=== PATIENT | female | born 1975 | race African-American/Black ===

== ENCOUNTER 2017-07-13 06:54 | Day surgery (SDC) | payer OTHER ==
[2017-07-13] VITALS (10 sets, daily range): BP systolic 112–168; BP diastolic 63–83
[~2017-07-13] VITALS: Ht 177.8 cm; Wt 86.2 kg
[~2017-07-13 06:54] MED LIST: Clindamycin 600mg 50 ML IV ONE; NKM; celeBREX 200mg Cap **SURGERY PATIENTS ONLY ORAL ONE; oxyCONTIN 20mg tab ORAL ONE
--- NOTE | 2017-07-13 06:54 | Anethesia Preoperative Eval ---
Anesthesia Pre-op PMH/ROS General Date of Evaluation: Jul 13, 2017 Anesthesiologist: Evin ASA Score: ASA 2 Mallampati Score Class I : Soft palate, uvula, fauces, pillars visible Class II: Soft palate, uvula, fauces visible Class III: Soft palate, base of uvula visible Class IV: Only hard plate visible Mallampati Classification: Class II Surgeon: Calvin Diagnosis: Left shoulder derangement Surgical Procedure: Left shoulder arthroscopy, mini macon Anesthesia History: none Family History: no anesthesia problems Allergies: Coded Allergies: AMOXICILLIN (Verified Allergy, Unknown, 07/09/17) Medications: see eMAR Past Medical History Cardiovascular: Denies: HTN, CAD, NE, valve dz, arrhythmia, other Pulmonary: Denies: asthma, COPD, WILIAM, other Gastrointestinal/Genitourinary: Denies: GERD, CRI, ESRD, other Neurologic/Psychiatric: Denies: dementia, CVA, depression/anxiety, TIA, other Endocrine: Denies: DM, hypothyroidism, steroids, other HEENT: Denies: cataract (L), cataract (R), glaucoma, [place] (L), [place] (R), other Hematology/Immune: Denies: anemia, DVT, bleeding disorder, other Musculoskeletal/Integumentary: Denies: OA, RA, DJD, DDD, edema, other PSxH Narrative: T&A, Bilateral breast implants, right knee arthroscopy Anesthesia Pre-op Phys. Exam Physician Exam see chart Constitutional: NAD Cardiovascular: RRR Respiratory: CTA Airway Exam Mallampati Score: Class II MO: full ROM: full Teeth: intact Anesthesia Pre-op A/P Labs see chart Studies Pre-op Studies: EKG - sr Risk Assessment & Plan Assessment: ASA II Plan: GA with interscalene nerve block Status Change Before Surgery: No Pre-Antibiotics Drug: Ancef 2g Given Within 1 Hr of Incision: Yes Time Given: 09:45 ISABEL SILVA M.D. Jul 13, 2017 06:54
--- NOTE | 2017-07-13 07:00 | Pre-Procedure Note/Attestation ---
Pre-Procedure Note/Attestation Complete Prior to Procedure Planned Procedure: left Procedure Narrative: left shoulder scope, sad, mini franklyn, debridement vs rtc repair Indications for Procedure Pre-Operative Diagnosis: left shoulder impingement Attestation I attest that I discussed the nature of the procedure; its benefits; risks and complications; and alternatives (and the risks and benefits of such alternatives ), prior to the procedure, with the patient (or the patient's legal associate financial representative). I attest that, if there was a reasonable possibility of needing a blood transfusion, the patient (or the patient's legal associate financial representative) was given the [place] [employer] standardized written summary, pursuant to the Rashaad Cas Blood Safety Act ([place] Health and Safety Code # 1645, as amended). I attest that I re-evaluated the patient just prior to the surgery and that there has been no change in the patient's H&P, except as documented below:NONE CANDE SHAW Jul 13, 2017 06:59
[2017-07-13] MEDS ORDERED: Ropivacaine 5mg/ml Vial 30ml INJ ONE (09:05)
[2017-07-13] MEDS ORDERED: Bupivacaine 0.5% Inj 30 ml vial INJ ONE (09:05)
[2017-07-13] MEDS ORDERED: EPINEPHrine 1mg/1ml Amp ONE (09:05)
[2017-07-13] MEDS ORDERED: Acetaminophen (Non formulary) 100 ML IV ONE (09:15)
[2017-07-13] MEDS ORDERED: NS Irrig 4000ml IRRIG ONE ×2 (09:30→10:18)
[2017-07-13] MEDS ORDERED: LR 1000ml ONE (09:30)
[2017-07-13] MEDS ORDERED: Zemuron 50mg/5ml Inj IV ONE (09:30)
[2017-07-13] MEDS ORDERED: Sterile Water Irrig 1000ml IRRIG ONE (09:30)
[2017-07-13] MEDS ORDERED: Midazolam 2mg/2ml Inj ONE (09:30)
[2017-07-13] MEDS ORDERED: Propofol 200mg/20ml IV ONE (09:30)
[2017-07-13] MEDS ORDERED: Metoclopramide 10mg/2ml Inj ONE (09:30)
[2017-07-13] MEDS ORDERED: Lidocaine 1% MPF 10mg/ml 5ml ONE (09:30)
[2017-07-13] MEDS ORDERED: fentaNYL 100 mcg/2 mL IV ONE (09:30)
[2017-07-13] MEDS ORDERED: Ketorolac 30mg Inj ONE (09:30)
[2017-07-13] MEDS ORDERED: Dexamethasone 4mg/ml vial ONE (09:30)
[2017-07-13] MEDS ORDERED: LR 1000ml 1,000 ML IVLG SCH (10:01)
--- NOTE | 2017-07-13 10:04 | 48 Hour Post Anesthesia Eval ---
Post Anesthesia Evaluation Procedure: Left shoulder arthroscopy, subacromial decompression, mini franklyn repair Date of Evaluation: Jul 13, 2017 Time of Evaluation: 14:15 Blood Pressure Systolic: 129 0: 75 Pulse Rate: 65 Respiratory Rate: 18 Temperature (Fahrenheit): 97.5 O2 Sat by Pulse Oximetry: 100 Airway: patent Nausea: No Vomiting: No Pain Intensity: 0 Hydration Status: adequate Cardiopulmonary Status: at baseline Mental Status/LOC: patient returned to baseline Post-Anesthesia Complications: 0 Follow-up care needed: ready to discharge ISABEL SILVA M.D. Jul 13, 2017 10:04
--- NOTE | 2017-07-13 10:04 | Immediate Post-Op Evaluation ---
Immediate Post-Op Evalulation Immediate Post-Op Evalulation Procedure: Left shoulder arthroscopy, subacromial decompression, mini franklyn repair Date of Evaluation: Jul 13, 2017 Time of Evaluation: 11:09 IV Fluids: 600 Blood Products: 0 Estimated Blood Loss: min Urinary Output: 0 Blood Pressure Systolic: 156 Blood Pressure Diastolic: 60 Pulse Rate: 71 Respiratory Rate: 16 O2 Sat by Pulse Oximetry: 99 Temperature (Fahrenheit): 97.5 Pain Score (1-10): 0 Nausea: No Vomiting: No Complications 0 Patient Status: awake, reacts, patent, none Hydration Status: adequate Drug: Ancef 2g Given Within 1 Hr of Incision: Yes Time Given: 09:45 ISABEL SILVA M.D. Jul 13, 2017 10:04
[2017-07-13] MEDS ORDERED: DiphenhydrAMINE 50mg/ml Inj IVP PRN (10:15)
[2017-07-13] MEDS ORDERED: fentaNYL 100 mcg/2 mL IV PRN (10:15)
[2017-07-13] MEDS ORDERED: Midazolam 2mg/2ml Inj IVP PRN (10:15)
[2017-07-13] MEDS ORDERED: Ketorolac 30mg Inj IV PRN (10:15)
[2017-07-13] MEDS ORDERED: Hydromorphone 0.5mg/0.5ml inj IVP PRN (10:15)
--- NOTE | 2017-07-13 10:54 | Brief Operative Note ---
Immediate Post Operative Note Operative Note Chief Complaint: left shoudler pain Pre-op Diagnosis: left shoulder impingement Procedure: left shoulder scope, roxane, tabitha estes Post-op Diagnosis: same as pre-op Findings: consistent w/pre-op dx studies Surgeon: md neptali Crucible Packer: mark avalos Anesthesiologist: md chico Anesthesia: general, regional Specimen: none Complications: none Condition: stable Fluids: ns Estimated Blood Loss: minimal Drains: none Implant(s) used?: No MEGHAN AVALOS Jul 13, 2017 10:54
[2017-07-13] MEDS ORDERED: HYDROmorphone 1mg/ml Carpuject SUBQ PRN (15:01)
[2017-07-13] MEDS ORDERED: Tylenol #3 tab (300mg/30mg) ORAL PRN (15:01)
[2017-07-13] MEDS ORDERED: D5 1/2NS 1,000 ML IV SCH (15:01)
[2017-07-13] MEDS ORDERED: Norco 5mg/325mg tab ORAL PRN (15:01)
--- NOTE | 2017-07-13 21:30 | Operative Note - Dictated ---
DATE OF OPERATION: 07/13/2017 PREOPERATIVE DIAGNOSES: 1. Left shoulder impingement. 2. Left shoulder possible partial-thickness rotator cuff tear. POSTOPERATIVE DIAGNOSES: 1. Left shoulder superior as well as anterior labral tearing without detachment from glenoid. 2. Left shoulder subacromial impingement. 3. No evidence of rotator cuff tear. PROCEDURE: 1. Left shoulder arthroscopy and extensive intra-articular shaving. 2. Left shoulder debridement and repair of the anterior and superior labrum without anchor fixation. 3. Left shoulder subacromial bursoscopy, bursectomy, subacromial decompression. 4. Left shoulder mini-Jany procedure (resection of inferior 30% of the distal end of the clavicle for coplaning). SURGEON: Zuhair Simpson M.D. SCHEDULING ASSISTANT: Kylah Varner PA-C. Campground Cleaning Attendant was present during the actual operative portion of the case and was important and essential part of the operation. During the operation, the recruitment assistant held and operated the arthroscopic camera for visualization, assisted by manipulating the arm to help with visualization, and helped with essential parts of the repair process as necessary such as operating surgical instruments under surgeon supervision, suture management, and wound closures. ANESTHESIOLOGIST: Dr. Cleary. ANESTHESIA: LMA anesthesia combined with interscalene block. ESTIMATED BLOOD LOSS: Minimal. COMPLICATIONS: None. SURGICAL INDICATION: The patient is a 42-year-old female who sustained the above injury to her shoulder. The patient was treated non-operative initially, but this did not alleviate the patients symptoms. Therefore, after discussing all non-surgical and surgical options, and discussing all foreseeable risk and benefits of surgery, the patient opted for surgical treatment as described above. PATIENT POSITIONING: The patient was brought to the operating room table and was placed on the operating room table. All pressure points were well padded. General anesthesia was induced and the patient was then placed in the lateral decubitus position. All pressure points were well padded again and an axillary roll was placed. The patient's shoulder was then prepped and draped in the usual sterile fashion. Time-out was performed and the appropriate preoperative antibiotic was given by the anesthesiologist. EXAMINATION OF SHOULDER UNDER ANESTHESIA: The shoulder was examined under anesthesia with all muscles well relaxed. The shoulder was forward-flexed, abducted, and was placed through full range of external and internal rotation. The anterior, posterior, and inferior stability of the shoulder was checked. The exam revealed no evidence of adhesive capsulitis and no evidence of instability. PORTAL PLACEMENT: The posterior portal was established 2 cm inferior and 1 cm medial to the edge of the posterior acromion. A 1-cm skin incision was made using an #11 blade and using the blunt obturator, the cannula was gently placed through the capsule. The midglenoid portal was established just lateral to the coracoid process under direct visualization. Direction of the cannula was first established using a spinal needle, and subsequently, the cannula was placed through the capsule with a blunt obturator. DIAGNOSTIC ARTHROSCOPY: The biceps tendon was probed and pulled through the joint for visualization. It appeared normal. The biceps anchor was palpated with a probe and was visualized. There was extensive superior as well as posterior labral tearing, but there was no extension into the attachment of the biceps. The posterior labrum and axillary recess was visualized. This was normal and there was no evidence of loose cartilage or fragments in this area. The glenoid articular surface was visualized and it appeared normal. The articular surface of the rotator cuff was visualized and probed next. There was no evidence of articular sided rotator cuff tear extending from the supraspinatus back to the posterior cuff. The Humeral head articular surface was then visualized. There was no evidence of articular cartilage damage. Next the anterior labrum, middle glenohumeral ligament, subscapularis tendon, and the anterior inferior glenohumeral ligament were evaluated. These structures were completely normal. At this point, the scope was moved to the midglenoid portal and the posterior structures including the posterior labrum, posterior capsule and posterior cuff were visualized. These structures were completely normal. The subscapularis recess was devoid of any loose bodies and the anterior capsule was well attached to the humeral neck. The middle and anterior inferior glenohumeral ligament was visualized. These structures were completely normal. OPERATIVE DEBRIDEMENTS AND REPAIR: Care was given to all partial-thickness tears and frayed structures in the shoulder joint. The frayed rotator cuff and labrum was debrided using a shaver initially through the anterior portal and subsequently through the posterior portal to complete the debridement. This allowed for smooth debridement of all affected structures and all loose fragments were removed. DIAGNOSTIC BURSOSCOPY AND SUBACROMIAL DECOMPRESSION: The subacromial bursa was entered from the posterior portal. The anterior portal was established under the CA ligament using a switching stick. Subacromial arthroscopy was initiated. There was extensive bursitis and thickened and inflamed bursa tissue present. The CA ligament appeared to be scuffed and frayed. The shaver was placed through the anterior cannula and debridement of the hypertrophic bursa tissue was accomplished. Once visualization was adequate, a lateral portal was established using a blunt trocar in the mid portion of the acromion bone in the anterior-posterior direction and approximately 2 cm lateral to the lateral edge of the acromion. Using combination of shaver and electrocautery, the CA ligament was released from the undersurface of the acromion and a complete bursectomy was accomplished. At this point, a subacromial decompression was performed using a radha initially taking off 5-8 mm of the anterolateral edge of the acromion from the lateral portal and viewing from the posterior portal. Then the lateral border of the undersurface of the acromion was decompressed to the same depth as the anterolateral edge. A posterior trough was then created in the acromion in line with the posterior edge of the clavicle. At this point, the scope was placed in the lateral portal and the subacromial decompression was performed from the posterior portal decompressing the undersurface of the acromion to depth of 5-8 mm. The decompression was performed anterior to the previously marked trough all the way medially to the level of the AC joint. At all times, care was given not to take off too much bone in order to avoid risk of fracture of the acromion. An excellent subacromial decompression was performed in this fashion. At this point, the bursal side of the rotator cuff was examined. All the bursa over the rotator cuff was removed and the rotator cuff was examined with a probe. The arm was placed into external rotation, neutral, and then internal rotation and there was no evidence of tear of the rotator cuff. The scope was then placed in the posterior portal and the subacromial decompression was rechecked to assure there was no area of bone spur that would be still impinging onto the rotator cuff. EVALUATION OF DISTAL CLAVICLE AND DISTAL CLAVICLE RESECTION: Care was given to the distal end of the clavicle. Using electrocautery and rolando, the distal end of the bursa and soft tissue around the distal end of the clavicle was debrided and cleaned. Care was given not to inflict excessive trauma to the ligaments of the AC joint. The distal end of the clavicle appeared to have an inferior osteophyte extending down well bellow the level of the acromion at the level of the AC joint. This appeared to be impinging onto the supraspinatus muscle belly and the musculotendinous junction of the rotator cuff. A mini-Jany procedure was performed by using a radha to resect the inferior 30% of the distal end of the clavicle. This decompression allowed space for the inferior structures to slide without impingement. This co-plained the inferior edge of the distal clavicle with the inferior edge of the acromion. CONDITION AT DISCHARGE FROM OPERATING ROOM: The skin was re-approximated and sterile dressing and sling were applied. All lap counts and instrument counts were correct. The patient tolerated the procedure well without complications and was taken to the recovery room in stable conditions. Zuhair Simpson M.D. DR: Robert JOB#: [id number] CC:
[2017-07-14 12:44] VITALS: BP 129/75
== END 2017-07-13 14:15 | disposition home or self-care (01) ==
LOC: SUR 06:54
DX: M75.42 Impingement syndrome of left shoulder (principal); S43.402A Unspecified sprain of left shoulder joint, initial encounter; X58.XXXA Exposure to other specified factors, initial encounter; Y93.9 Activity, unspecified; Y92.9 Unspecified place or not applicable; Z80.3 Family history of malignant neoplasm of breast; Z83.3 Family history of diabetes mellitus; Z88.8 Allergy status to other drugs, medicaments and biological substances
CPT/HCPCS: 29807; 29823; 29824; 81025; J0690; J1100; J1885; J2250; J2405; J2704; J2765; J2795; J3010; J7120; 94003; 94150